=== PATIENT | female | born 1990 | race Caucasian/White ===

== ENCOUNTER 2016-09-20 13:25 | Emergency (ER) | payer OTHER ==
--- NOTE | 2016-09-20 16:08 | ED ORDER SUMMARY ---
..... Patient: KALI PETIT OrderSheet [facility] VisitID: [id number] [address] [place] [address] 26y, F Registration Date/Time: 09/20/2016 ORDER SHEET Weight: 64.4 kg (stated) Allergies: No Known Drug Allergy GENERAL ORDERS: Wet Prep (Cervix) (cervix) Urgent (14:09/20/2016 HBivens A.R.N.P.) (Ack 14:03 KHoerner) (14:09 SRoberts R.N.) CBC w Diff Urgent (14:09/20/2016 HBivens A.R.N.P.) (Ack 14:03 KHoerner) (14:15 KHoerner) CMP Urgent (14:09/20/2016 HBivens A.R.N.P.) (Ack 14:03 KHoerner) (14:15 KHoerner) UA-Culture if indicated Urgent (14:09/20/2016 HBivens A.R.N.P.) (Ack 14:03 KHoerner) (14:09 SRoberts R.N.) Serum Qualitative Urgent (14:09/20/2016 HBivens A.R.N.P.) (Ack 14:03 KHoerner) (14:09 SRoberts R.N.) (Cancelled: Duplicate [facility]14[facility] (Cancelled: Physician Order14:12 SRoberts R.N.) Pelvic Exam Setup (14:09/20/2016 HBivens A.R.N.P.) (Ack 14:03 KHoerner) (14:09 SRoberts R.N.) US OB 1st Trimester w Transvag (5 weeks) Urgent (14:08 09/20/2016 HBivens A.R.N.P.) (Ack 14:10 KHoerner) (16:27 SRoberts R.N.) Serum Quantitative Urgent (14:09/20/2016 HBivens A.R.N.P.) (Ack 14:10 KHoerner) (14:15 KHoerner) MEDICATION ORDERS: IV FLUIDS: ORDER SHEET NOTES: [Electronically signed by Su Douglass R.N. (16:31 09/20/2016)] [Electronically signed by Layne Rojo (16:37 09/20/2016)] [Electronically locked/signed by Su Douglass R.N. (16:31 09/20/2016)]
--- NOTE | 2016-09-20 16:08 | ED CLINICAL REPORT ---
Clinical Report - Physicians/Mid Levels [facility] [address] [place] [address] 09/20/2016 13:29 Patient: KALI PETIT Time Seen: 13:39; initial patient contact, initial documentation, patient care assumed. Arrived- By private vehicle. Historian- patient. HISTORY OF PRESENT ILLNESS Chief Complaint: PELVIC PAIN and VAGINAL BLEEDING. This started about 10 days ago, still present and now gone (bleeding gone, but still has pain). The symptoms are described as mild. Modifying factors. Not worsened by anything. Not relieved by anything. The patient has had mild, constant abdominal pain (runs vertical from umbilicus to suprapubic). The pain is described as located in the central area of the abdomen. She has had abnormal bleeding described as spotting saw bright red blood on tp a few times when wiping, none here. She has had a scant amount of white vaginal discharge . There is no prior history of pelvic inflammatory disease or exposure to venereal disease. The patient does not believe the discharge to be a yeast infection. No pelvic pain, vaginal pain, low back pain, flank pain or irregular periods. No vaginal itching, pain with urination, urinary frequency, urgency of urination or hematuria. Sexually active- unprotected sex and heterosexual. No exposure to sexually transmitted disease. Does not use control measures. Currently : about 5 weeks , dates based on last period. In 1st trimester. Recently diagnosed. Uncertain of dates. confirmed with home test. Has had no care. G 1. P 0. Not receiving care. Similar symptoms previously: None. Recent medical care: Not recently seen/assessed. REVIEW OF SYSTEMS The patient has had nausea. She has had vomiting. No diarrhea, fever, difficulty breathing or chest pain. All systems otherwise negative, except as recorded above. PAST HISTORY See nurses notes. ( PROBLEMS: Chronic Back Pain. Asthma. Polycystic Kidney. --17:58 Kelly Hernandez R.N. ADDITIONAL SURGERIES: no known surgeries.). Asthma. Polycystic kidney. SOCIAL HISTORY Never smoker. Occasional alcohol use. History of occasional drug use: marijuana. No recent travel. Is a local resident. FAMILY HISTORY Negative. ADDITIONAL NOTES The nursing notes have been reviewed with agreement regarding the chief complaint, HPI, ROS, PMH and patient medications and allergies. PHYSICAL EXAM Vital Signs: 09/20/2016 13:45 BP: 139/79. HR: 70. RR: 22. O2 saturation: 100%. Temp: 97.7 F. Pain level now: 0/10. Have been reviewed as normal and appear to be correct. Appearance: Alert. Oriented X3. No acute distress. HEENT: Normal external inspection. ENT: Pharynx normal. Neck: Neck supple. CVS: Heart sounds normal. Respiratory: No respiratory distress. Breath sounds normal. Chest nontender. Abdomen: Soft and nontender. Bowel sounds normal. No organomegaly. No mass. Back: Normal external inspection. : External inspection normal. Speculum exam abnormal. A scant amount of thick, white, yellow and malodorous vaginal discharge present. No vaginal bleeding. Cervical os closed. No tissue present. No cervicitis. No herpes-like lesions. Bimanual exam normal. Skin: Skin warm and dry. Normal skin color. No rash. Normal skin turgor. Extremities: Extremities nontender. No lower extremity edema. Neuro: Oriented X 3. Mood/affect normal. No motor deficit. No sensory deficit. LABS, X-RAYS, AND EKG Pelvic Sonogram: No acute disease. iup 6wk report given by Intergloss Juhi. Interpretation time: 15:29. Laboratory Tests: UA-Culture if indicated: (TRIPP: 09/20/2016 13:58) ( MsgRcvd 09/20/2016 14:44) Final results Test Result Flag Units (Reference) URINE COLOR YELLOW URINE APPEARANCE CLEAR URINE GLUCOSE NEGATIVE (NEGATIVE) URINE BILIRUBIN NEGATIVE (NEGATIVE) URINE KETONE NEGATIVE (NEGATIVE) URINE SPECIFIC GRAVITY 1.010 (1.010-1.030) URINE PH 7.0 (5.0-8.0) URINE PROTEIN NEGATIVE (NEGATIVE) URINE UROBILINOGEN 0.2 EU/dL (0.2-1.0) URINE NITRITE NEGATIVE (NEGATIVE) URINE BLOOD NEGATIVE (NEGATIVE) URINE LEUK ESTERASE NEGATIVE (NEGATIVE) URINE RBC RARE rbc/hpf (0-1) URINE WBC 0-1 wbc/hpf (0-1) URINE EPITHELIAL CELLS 0-1 EPI/hpf (0-5) URINE BACTERIA NONE SEEN (NONE SEEN) URINE COMMENT CULT NOT INDICATED URINE CULTURES ARE SET-UP BASED ON THE FOLLOWING CRITERIA:POSITIVE NITRITEPOSITIVE LEUKOCYTE ESTERASEGREATER THAN 10 WHITE BLOOD CELLSMODERATE (2+) OR GREATER BACTERIA CBC w Diff: (TRIPP: 09/20/2016 14:15) ( [facility] [place] 14[facility]39) Final results Test Result Flag Units (Reference) WHITE BLOOD COUNT 7.8 K/uL (4.5-11.5) RED BLOOD COUNT 5.06 M/uL (4.00-5.20) HEMOGLOBIN 14.6 gm/dL (12.0-16.0) HEMATOCRIT 43.8 % (36.0-46.0) MEAN CELL VOLUME 87 fL (80-100) MEAN CORPUSCULAR HGB 29 pg (26-34) MEAN CORPUSCULAR HGB CONC 33 g/dL (31-37) RED CELL DISTRIBUTION WIDTH 13.3 % (11.6-14.8) PLATELET COUNT 211 K/uL (150-400) NEUTROPHIL % 63.6 % (50-75) LYMPH % 27.7 % (25-40) MONO % 6.3 % (3-14) EOSINOPHIL % 2.0 % (0-4) BASOPHIL % 0.4 % (0-2) CMP: (TRIPP: 09/20/2016 14:15) ( MsgRcvd 09/20/2016 15:34) Final results Test Result Flag Units (Reference) GLUCOSE 91 mg/dL (70-110) BUN 7 mg/dL (7-18) CREATININE 0.6 mg/dL (0.6-1.3) Estimated GFR >60 mL/min Estimated GFR- >60 mL/min Note: Persistent reduction over 3 months in eGFR<60 mL/min/1.73 m2 defines CKD. Patients with eGFR values>=60 mL/min/1.73 m2 may also have CKD if evidence ofpersistent proteinuria. Additional information may be foundat www.kidney.org. SODIUM 140 mmol/L (136-145) POTASSIUM 3.5 mmol/L (3.5-5.1) CHLORIDE 104 mmol/L (98-107) CARBON DIOXIDE 24 mmol/L (21-32) CALCIUM 9.2 mg/dL (8.5-10.1) TOTAL PROTEIN 7.6 g/dL (6.4-8.2) ALBUMIN 4.2 g/dL (3.3-5.0) BILIRUBIN, TOTAL 0.5 mg/dL (0.0-1.0) ALKALINE PHOSPHATASE 47 U/L (46-116) AST (SGOT) 14 L U/L (15-37) ALT (SGPT) 17 U/L (12-78) BETA HCG, QUANTITATIVE 31403 mIU/mL REFERENCE RANGE:Adult Males: <2 mIU/mLNon- Females: <6 mIU/mL Females:Approximate Approximate hCGGestational Age Range (mIU/mL) 0-1 week 0-501-2 weeks 40-3002-3 weeks 100-96307-5 weeks 500-10980-8 months 5,000-200,0002-3 months 10,000-100,0002nd trimester 3,000-50,0003rd trimester 1,000-50,000 Wet Prep: (TRIPP: 09/20/2016 13:58) ( MsgRcvd 09/20/2016 14:38) Final results SPECIMEN DESCRIPTION: CERVIX Test Result Flag Units (Reference) WET MOUNT CLUE CELLS:: MODERATE * EPITHELIAL CELLS: MANY -- SOURCE?: CERVIX WHITE BLOOD CELLS: MODERATE TRICHOMONAS:: NONE -- YEAST:: NONE . PROGRESS AND PROCEDURES Patient counseled in person regarding the patient's stable condition, test results and diagnosis. 1600. Differential Diagnosis: I considered acute cholecystitis, pancreatitis, acute appendicitis, diverticulitis, colon cancer, urinary tract infection, ureterolithiasis, ovarian cyst, ovarian torsion, , ectopic , pelvic inflammatory disease, pelvic abscess, endometriosis and viral syndrome as a possible cause of pelvic pain in this patient. This is a partial list of diagnoses considered. Above considerations are based on history, physical exam, laboratory data and other information. Differential diagnosis was discussed with patient. Disposition: Discharged home in good and unchanged condition (16:08). Condition: good and stable. CLINICAL IMPRESSION Acute moderate bacterial vaginitis INSTRUCTIONS Warnings: GENERAL WARNINGS: Return or contact your physician immediately if your condition worsens or changes unexpectedly, if not improving as expected, or if other problems arise. Specifically return if problem worsens. Prescription Medications: Flagyl 500 mg: Take 1 tablet orally every 12 hours for 7 days. No refill. Substitution is permissible. Follow-up: Follow up with your doctor in about three days even if well. Call for an appointment. Summary of care provided to patient. Understanding of the discharge instructions verbalized by patient. (Electronically signed by Layne Rojo A.R.N.P. 09/20/2016 16:37)
--- NOTE | 2016-09-20 16:08 | ED NURSING NOTES ---
Clinical Report - Nurses [facility] [address] [place] [address] 09/20/2016 13:29 Patient: KALI PETIT TRIAGE Triage time 13:45. Acuity: LEVEL 3. Chief Complaint: ABDOMINAL CRAMPS and ABDOMINAL CRAMPS and SPOTTING. Alert. No acute distress. SEPSIS SCREEN: Sepsis Screen: negative. Negative (no infection suspected/documented). --13:54 Su Douglass R.N. 13:45 09/20/16. BP: 139/79. HR: 70. RR: 22. O2 saturation: 100%. Temp: 97.7 F. Pain level now: 0/10. --13:54 Su Douglass R.N. Weight: 64.4 kg stated. Height/Length: 63 inches Per Patient. BMI: 25.2. --13:48 Su Douglass R.N. Medications Qvar Inhalation. --13:47 Su Douglass R.N. Medication/allergy information source: the patient. --13:54 Su Douglass R.N. Allergies No Known Drug Allergy. --13:47 Su Douglass R.N. History Arrived by private vehicle. Historian: patient. Accompanied by friend. Primary physician ([facility]). Onset. (10 days ago, got worse today and had a "couple of drops of vaginal bleed this am "). She has had vomiting. Treatment IRONING WORKER: None. PAST MEDICAL HX: Immunizations: status is unknown. Last normal menstrual period- August 15. ( asthma, polycystic kidney). SURGERY HX: No history of previous surgery. SOCIAL HX: Never smoker. Occasional alcohol use. History of drug use: marijuana. Recently used drugs days ago. ABUSE ASSESSMENT: No report of abuse. FALL RISK ASSESSMENT: Fall risk assessment completed. No fall risk identified. NUTRITIONAL RISK ASSESSMENT: The nutritional risk assessment revealed no deficiencies. FUNCTIONAL ASSESSMENT: Functional assessment: no impairments noted. LEARNING NEEDS ASSESSMENT: The learning needs assessment revealed no barriers. SKIN INTEGRITY ASSESSMENT: Skin integrity risk assessment completed. No skin integrity risk identified. --13:54 Su Douglass R.N. Interventions ID band on patient. To room. --13:54 Su Douglass R.N. PHYSICAL ASSESSMENT Ambulatory to room. Patient gowned. GENERAL / NEURO / PSYCH: Alert. Oriented X 4. Appears anxious. HEENT: Mucous membranes are pink. RESPIRATORY: Respirations not labored. CVS: Capillary refill less than 2 seconds. GI / : Abdominal tenderness in the periumbilical area and suprapubic area. ( spot). SKIN: Skin is warm and dry. --14:02 Su Douglass R.N. NURSING PROGRESS NOTES Patient gowned. Head of bed elevated. Two patient identifiers checked. Call light placed in reach. Side rails up x 2. Bed placed in lowest position. Brakes of bed on. Patient ready for evaluation- chart flagged. --14:02 Su Douglass R.N. Patient ID band checked for patient name: patient confirmed. Instructions provided to collect clean catch urine and patient verbalized understanding. Clean catch urine collected with return of yellow-colored clear urine; sample sent to lab for urinalysis, culture and HCG. Specimen labeled in the presence of the patient. --14:03 Su Douglass R.N. PELVIC EXAM: Pelvic exam performed by MOBILITY SCOOTER REPAIRER. Assisted by one nurse. Preparation: pelvic tray and culture medium; patient placed in lithotomy position. Procedure: speculum exam. Scant amount of vaginal discharge noted. Specimens collected and sent to lab: wet prep. No vaginal bleeding noted. Status post-procedure: she was stable. Total time of assist / procedure: 15 minutes. --14:04 Su Douglass R.N. Patient ID band checked for patient name and birthdate: patient confirmed. Blood samples drawn from the left antecubital space with 22g butterfly by tech per protocol ; labeled in presence of the patient and sent to lab: rainbow set and red, green, purple and blue top. --14:20 Beverley Lucio ER Tech1. DISPOSITION / DISCHARGE 16:10. Condition at departure: improved. No learning barriers present. Discharge instructions provided and reviewed with the patient. Reviewed medication(s) side effects, precautions, dosing and course information. Prescription(s) given to the patient. Patient verbalized understanding. Written instructions provided in Kittitian. The patient was discharged home and accompanied by supervisor finish end. She left the Emergency Department ambulatory and via private vehicle. Loom Starter driving. Medication list reviewed and validated. --16:26 Su Douglass R.N. 16:24 09/20/16. BP: 115/64. HR: 63. RR: 18. O2 saturation: 100%. Temp: deferred. Pain level now: 0/10. 15:10 09/20/16. BP: 118/69. HR: 69. RR: 16. O2 saturation: 100% on room air. 13:45 09/20/16. BP: 139/79. HR: 70. RR: 22. O2 saturation: 100%. Temp: 97.7 F. Pain level now: 0/10. --16:26 Su Douglass R.N. Locked/Released at 09/20/2016 16:31 by Su Douglass R.N.
--- NOTE | 2016-09-20 16:08 | ED NURSING NOTES ---
Clinical Report - Nurses [facility] [address] [place] [address] 09/20/2016 13:29 Patient: KALI PETIT TRIAGE Triage time 13:45. Acuity: LEVEL 3. Chief Complaint: ABDOMINAL CRAMPS and ABDOMINAL CRAMPS and SPOTTING. Alert. No acute distress. SEPSIS SCREEN: Sepsis Screen: negative. Negative (no infection suspected/documented). --13:54 Su Douglass R.N. 13:45 09/20/16. BP: 139/79. HR: 70. RR: 22. O2 saturation: 100%. Temp: 97.7 F. Pain level now: 0/10. --13:54 Su Douglass R.N. Weight: 64.4 kg stated. Height/Length: 63 inches Per Patient. BMI: 25.2. --13:48 uS Douglass R.N. Medications Qvar Inhalation. --13:47 Su Douglass R.N. Medication/allergy information source: the patient. --13:54 Su Douglass R.N. Allergies No Known Drug Allergy. --13:47 Su Douglass R.N. History Arrived by private vehicle. Historian: patient. Accompanied by friend. Primary physician ([facility]). Onset. (10 days ago, got worse today and had a "couple of drops of vaginal bleed this am "). She has had vomiting. Treatment MARKETING INSTRUCTOR: None. PAST MEDICAL HX: Immunizations: status is unknown. Last normal menstrual period- August 15. ( asthma, polycystic kidney). SURGERY HX: No history of previous surgery. SOCIAL HX: Never smoker. Occasional alcohol use. History of drug use: marijuana. Recently used drugs days ago. ABUSE ASSESSMENT: No report of abuse. FALL RISK ASSESSMENT: Fall risk assessment completed. No fall risk identified. NUTRITIONAL RISK ASSESSMENT: The nutritional risk assessment revealed no deficiencies. FUNCTIONAL ASSESSMENT: Functional assessment: no impairments noted. LEARNING NEEDS ASSESSMENT: The learning needs assessment revealed no barriers. SKIN INTEGRITY ASSESSMENT: Skin integrity risk assessment completed. No skin integrity risk identified. --13:54 Su Douglass R.N. Interventions ID band on patient. To room. --13:54 Su Douglass R.N. PHYSICAL ASSESSMENT Ambulatory to room. Patient gowned. GENERAL / NEURO / PSYCH: Alert. Oriented X 4. Appears anxious. HEENT: Mucous membranes are pink. RESPIRATORY: Respirations not labored. CVS: Capillary refill less than 2 seconds. GI / : Abdominal tenderness in the periumbilical area and suprapubic area. ( spot). SKIN: Skin is warm and dry. --14:02 Su Douglass R.N. NURSING PROGRESS NOTES Patient gowned. Head of bed elevated. Two patient identifiers checked. Call light placed in reach. Side rails up x 2. Bed placed in lowest position. Brakes of bed on. Patient ready for evaluation- chart flagged. --14:02 Su Douglass R.N. Patient ID band checked for patient name: patient confirmed. Instructions provided to collect clean catch urine and patient verbalized understanding. Clean catch urine collected with return of yellow-colored clear urine; sample sent to lab for urinalysis, culture and HCG. Specimen labeled in the presence of the patient. --14:03 Su Douglass R.N. PELVIC EXAM: Pelvic exam performed by AQUATIC LIFE LABORER. Assisted by one nurse. Preparation: pelvic tray and culture medium; patient placed in lithotomy position. Procedure: speculum exam. Scant amount of vaginal discharge noted. Specimens collected and sent to lab: wet prep. No vaginal bleeding noted. Status post-procedure: she was stable. Total time of assist / procedure: 15 minutes. --14:04 Su Douglass R.N. Patient ID band checked for patient name and birthdate: patient confirmed. Blood samples drawn from the left antecubital space with 22g butterfly by tech per protocol ; labeled in presence of the patient and sent to lab: rainbow set and red, green, purple and blue top. --14:20 Beverley Lucio ER Tech1. DISPOSITION / DISCHARGE 16:10. Condition at departure: improved. No learning barriers present. Discharge instructions provided and reviewed with the patient. Reviewed medication(s) side effects, precautions, dosing and course information. Prescription(s) given to the patient. Patient verbalized understanding. Written instructions provided in Stateless. The patient was discharged home and accompanied by mold shop supervisor. She left the Emergency Department ambulatory and via private vehicle. Volcanologist driving. Medication list reviewed and validated. --16:26 Su Douglass R.N. 16:24 09/20/16. BP: 115/64. HR: 63. RR: 18. O2 saturation: 100%. Temp: deferred. Pain level now: 0/10. 15:10 09/20/16. BP: 118/69. HR: 69. RR: 16. O2 saturation: 100% on room air. 13:45 09/20/16. BP: 139/79. HR: 70. RR: 22. O2 saturation: 100%. Temp: 97.7 F. Pain level now: 0/10. --16:26 Su Douglass R.N. Locked/Released at 09/20/2016 16:31 by Su Douglass R.N.
--- NOTE | 2016-09-20 16:08 | ED ORDER SUMMARY ---
..... Patient: KALI PETIT OrderSheet [facility] VisitID: [id number] [address] [place] [address] 26y, F Registration Date/Time: 09/20/2016 ORDER SHEET Weight: 64.4 kg (stated) Allergies: No Known Drug Allergy GENERAL ORDERS: Wet Prep (Cervix) (cervix) Urgent (14:09/20/2016 HBivens A.R.N.P.) (Ack 14:03 KHoerner) (14:09 SRoberts R.N.) CBC w Diff Urgent (14:09/20/2016 HBivens A.R.N.P.) (Ack 14:03 KHoerner) (14:15 KHoerner) CMP Urgent (14:09/20/2016 HBivens A.R.N.P.) (Ack 14:03 KHoerner) (14:15 KHoerner) UA-Culture if indicated Urgent (14:09/20/2016 HBivens A.R.N.P.) (Ack 14:03 KHoerner) (14:09 SRoberts R.N.) Serum Qualitative Urgent (14:09/20/2016 HBivens A.R.N.P.) (Ack 14:03 KHoerner) (14:09 SRoberts R.N.) (Cancelled: Duplicate Order14:12 [facility] (Cancelled: Physician Order14:12 SRoberts R.N.) Pelvic Exam Setup (14:09/20/2016 HBivens A.R.N.P.) (Ack 14:03 KHoerner) (14:09 SRoberts R.N.) US OB 1st Trimester w Transvag (5 weeks) Urgent (14:08 09/20/2016 HBivens A.R.N.P.) (Ack 14:10 KHoerner) (16:27 SRoberts R.N.) Serum Quantitative Urgent (14:09/20/2016 HBivens A.R.N.P.) (Ack 14:10 KHoerner) (14:15 KHoerner) MEDICATION ORDERS: IV FLUIDS: ORDER SHEET NOTES: [Electronically signed by Su Douglass R.N. (16:31 09/20/2016)] [Electronically signed by Layne Rojo (16:37 09/20/2016)] [Electronically locked/signed by Su Douglass R.N. (16:31 09/20/2016)]
--- NOTE | 2016-09-20 16:08 | ED CLINICAL REPORT ---
Clinical Report - Physicians/Mid Levels [facility] [address] [place] [address] 09/20/2016 13:29 Patient: KALI PETIT Time Seen: 13:39; initial patient contact, initial documentation, patient care assumed. Arrived- By private vehicle. Historian- patient. HISTORY OF PRESENT ILLNESS Chief Complaint: PELVIC PAIN and VAGINAL BLEEDING. This started about 10 days ago, still present and now gone (bleeding gone, but still has pain). The symptoms are described as mild. Modifying factors. Not worsened by anything. Not relieved by anything. The patient has had mild, constant abdominal pain (runs vertical from umbilicus to suprapubic). The pain is described as located in the central area of the abdomen. She has had abnormal bleeding described as spotting saw bright red blood on tp a few times when wiping, none here. She has had a scant amount of white vaginal discharge . There is no prior history of pelvic inflammatory disease or exposure to venereal disease. The patient does not believe the discharge to be a yeast infection. No pelvic pain, vaginal pain, low back pain, flank pain or irregular periods. No vaginal itching, pain with urination, urinary frequency, urgency of urination or hematuria. Sexually active- unprotected sex and heterosexual. No exposure to sexually transmitted disease. Does not use control measures. Currently : about 5 weeks , dates based on last period. In 1st trimester. Recently diagnosed. Uncertain of dates. confirmed with home test. Has had no care. G 1. P 0. Not receiving care. Similar symptoms previously: None. Recent medical care: Not recently seen/assessed. REVIEW OF SYSTEMS The patient has had nausea. She has had vomiting. No diarrhea, fever, difficulty breathing or chest pain. All systems otherwise negative, except as recorded above. PAST HISTORY See nurses notes. ( PROBLEMS: Chronic Back Pain. Asthma. Polycystic Kidney. --17:58 Kelly Hernandez R.N. ADDITIONAL SURGERIES: no known surgeries.). Asthma. Polycystic kidney. SOCIAL HISTORY Never smoker. Occasional alcohol use. History of occasional drug use: marijuana. No recent travel. Is a local resident. FAMILY HISTORY Negative. ADDITIONAL NOTES The nursing notes have been reviewed with agreement regarding the chief complaint, HPI, ROS, PMH and patient medications and allergies. PHYSICAL EXAM Vital Signs: 09/20/2016 13:45 BP: 139/79. HR: 70. RR: 22. O2 saturation: 100%. Temp: 97.7 F. Pain level now: 0/10. Have been reviewed as normal and appear to be correct. Appearance: Alert. Oriented X3. No acute distress. HEENT: Normal external inspection. ENT: Pharynx normal. Neck: Neck supple. CVS: Heart sounds normal. Respiratory: No respiratory distress. Breath sounds normal. Chest nontender. Abdomen: Soft and nontender. Bowel sounds normal. No organomegaly. No mass. Back: Normal external inspection. : External inspection normal. Speculum exam abnormal. A scant amount of thick, white, yellow and malodorous vaginal discharge present. No vaginal bleeding. Cervical os closed. No tissue present. No cervicitis. No herpes-like lesions. Bimanual exam normal. Skin: Skin warm and dry. Normal skin color. No rash. Normal skin turgor. Extremities: Extremities nontender. No lower extremity edema. Neuro: Oriented X 3. Mood/affect normal. No motor deficit. No sensory deficit. LABS, X-RAYS, AND EKG Pelvic Sonogram: No acute disease. iup 6wk report given by [employer]. Interpretation time: 15:29. Laboratory Tests: UA-Culture if indicated: (TRIPP: 09/20/2016 13:58) ( MsgRcvd 09/20/2016 14:44) Final results Test Result Flag Units (Reference) URINE COLOR YELLOW URINE APPEARANCE CLEAR URINE GLUCOSE NEGATIVE (NEGATIVE) URINE BILIRUBIN NEGATIVE (NEGATIVE) URINE KETONE NEGATIVE (NEGATIVE) URINE SPECIFIC GRAVITY 1.010 (1.010-1.030) URINE PH 7.0 (5.0-8.0) URINE PROTEIN NEGATIVE (NEGATIVE) URINE UROBILINOGEN 0.2 EU/dL (0.2-1.0) URINE NITRITE NEGATIVE (NEGATIVE) URINE BLOOD NEGATIVE (NEGATIVE) URINE LEUK ESTERASE NEGATIVE (NEGATIVE) URINE RBC RARE rbc/hpf (0-1) URINE WBC 0-1 wbc/hpf (0-1) URINE EPITHELIAL CELLS 0-1 EPI/hpf (0-5) URINE BACTERIA NONE SEEN (NONE SEEN) URINE COMMENT CULT NOT INDICATED URINE CULTURES ARE SET-UP BASED ON THE FOLLOWING CRITERIA:POSITIVE NITRITEPOSITIVE LEUKOCYTE ESTERASEGREATER THAN 10 WHITE BLOOD CELLSMODERATE (2+) OR GREATER BACTERIA CBC w Diff: (TRIPP: 09/20/2016 14:15) ( [facility] 09/20/2016 14:39) Final results Test Result Flag Units (Reference) WHITE BLOOD COUNT 7.8 K/uL (4.5-11.5) RED BLOOD COUNT 5.06 M/uL (4.00-5.20) HEMOGLOBIN 14.6 gm/dL (12.0-16.0) HEMATOCRIT 43.8 % (36.0-46.0) MEAN CELL VOLUME 87 fL (80-100) MEAN CORPUSCULAR HGB 29 pg (26-34) MEAN CORPUSCULAR HGB CONC 33 g/dL (31-37) RED CELL DISTRIBUTION WIDTH 13.3 % (11.6-14.8) PLATELET COUNT 211 K/uL (150-400) NEUTROPHIL % 63.6 % (50-75) LYMPH % 27.7 % (25-40) MONO % 6.3 % (3-14) EOSINOPHIL % 2.0 % (0-4) BASOPHIL % 0.4 % (0-2) CMP: (TRIPP: 09/20/2016 14:15) ( MsgRcvd 09/20/2016 15:34) Final results Test Result Flag Units (Reference) GLUCOSE 91 mg/dL (70-110) BUN 7 mg/dL (7-18) CREATININE 0.6 mg/dL (0.6-1.3) Estimated GFR >60 mL/min Estimated GFR- >60 mL/min Note: Persistent reduction over 3 months in eGFR<60 mL/min/1.73 m2 defines CKD. Patients with eGFR values>=60 mL/min/1.73 m2 may also have CKD if evidence ofpersistent proteinuria. Additional information may be foundat www.[email or web address].org. SODIUM 140 mmol/L (136-145) POTASSIUM 3.5 mmol/L (3.5-5.1) CHLORIDE 104 mmol/L (98-107) CARBON DIOXIDE 24 mmol/L (21-32) CALCIUM 9.2 mg/dL (8.5-10.1) TOTAL PROTEIN 7.6 g/dL (6.4-8.2) ALBUMIN 4.2 g/dL (3.3-5.0) BILIRUBIN, TOTAL 0.5 mg/dL (0.0-1.0) ALKALINE PHOSPHATASE 47 U/L (46-116) AST (SGOT) 14 L U/L (15-37) ALT (SGPT) 17 U/L (12-78) BETA HCG, QUANTITATIVE 70602 mIU/mL REFERENCE RANGE:Adult Males: <2 mIU/mLNon- Females: <6 mIU/mL Females:Approximate Approximate hCGGestational Age Range (mIU/mL) 0-1 week 0-501-2 weeks 40-3002-3 weeks 100-02009-8 weeks 500-26841-0 months 5,000-200,0002-3 months 10,000-100,0002nd trimester 3,000-50,0003rd trimester 1,000-50,000 Wet Prep: (TRIPP: 09/20/2016 13:58) ( MsgRcvd 09/20/2016 14:38) Final results SPECIMEN DESCRIPTION: CERVIX Test Result Flag Units (Reference) WET MOUNT CLUE CELLS:: MODERATE * EPITHELIAL CELLS: MANY -- SOURCE?: CERVIX WHITE BLOOD CELLS: MODERATE TRICHOMONAS:: NONE -- YEAST:: NONE . PROGRESS AND PROCEDURES Patient counseled in person regarding the patient's stable condition, test results and diagnosis. 1600. Differential Diagnosis: I considered acute cholecystitis, pancreatitis, acute appendicitis, diverticulitis, colon cancer, urinary tract infection, ureterolithiasis, ovarian cyst, ovarian torsion, , ectopic , pelvic inflammatory disease, pelvic abscess, endometriosis and viral syndrome as a possible cause of pelvic pain in this patient. This is a partial list of diagnoses considered. Above considerations are based on history, physical exam, laboratory data and other information. Differential diagnosis was discussed with patient. Disposition: Discharged home in good and unchanged condition (16:08). Condition: good and stable. CLINICAL IMPRESSION Acute moderate bacterial vaginitis INSTRUCTIONS Warnings: GENERAL WARNINGS: Return or contact your physician immediately if your condition worsens or changes unexpectedly, if not improving as expected, or if other problems arise. Specifically return if problem worsens. Prescription Medications: Flagyl 500 mg: Take 1 tablet orally every 12 hours for 7 days. No refill. Substitution is permissible. Follow-up: Follow up with your doctor in about three days even if well. Call for an appointment. Summary of care provided to patient. Understanding of the discharge instructions verbalized by patient. (Electronically signed by Layne Rojo A.R.N.P. 09/20/2016 16:37)
--- NOTE | 2016-09-20 16:37 | ED MED RECONCILIATION SUMMARY ---
Patient: KALI PETIT Medication Reconciliation Report [facility] VisitID: [id number] [address] [place] [address] 26y, F Registration Date/Time: 09/20/2016 Weight: 64.4 kg Height/Length: 63 in. BMI: 25.2 ALLERGIES: No Known Drug Allergy The patient's Home Medications are listed below: THE FOLLOWING MEDICATIONS NEED TO BE RECONCILED: Qvar Inhalation The source(s) of the original Home Medication information: patient The following Medications were given to the patient in the Emergency Department: None. The following Medications were prescribed to the patient: Flagyl 500 mg: Take 1 tablet orally every 12 hours for 7 days. No refill. Substitution is permissible. -- Layne Rojo A.R.N.P.
--- NOTE | 2016-09-20 16:37 | ED DISCHARGE INSTRUCTIONS ---
Patient: KALI PETIT General Instructions [facility] VisitID: [id number] [address] [place] [address] 26y, F Registration Date/Time: 09/20/2016 Acute moderate bacterial vaginitis INSTRUCTIONS Warnings: GENERAL WARNINGS: Return or contact your physician immediately if your condition worsens or changes unexpectedly, if not improving as expected, or if other problems arise. Specifically return if problem worsens. Prescription Medications: Flagyl 500 mg: Take 1 tablet orally every 12 hours for 7 days. No refill. Substitution is permissible. Follow-up: Follow up with your doctor in about three days even if well. Call for an appointment. Summary of care provided to patient. Understanding of the discharge instructions verbalized by patient. ADDITIONAL INFORMATION Bacterial Vaginosis You have a bacterial infection of the vagina called bacterial vaginosis (BV). It may also be called gardnerella or non-specific vaginitis. BV occurs when the "bad" bacteria outnumber the "good" bacteria that are normally present in the vagina. Symptoms include foul-smelling vaginal discharge (most noticeable after vaginal intercourse). There may also be burning with urination. The burning is caused as the urine passes over the inflamed outer vaginal area. The cause of bacterial vaginosis is not certain. However, your risk is higher if you recently began a new sexual relationship, or have had many sex partners in the past. Your risk is also higher if you douche often. While bacterial vaginosis most often occurs only in sexually active women, this is not a true sexually transmitted disease. You did not get this from your partner. You cannot give it to your partner. The infection may be related to temporary changes in the pH of vaginal fluids after being exposed to semen. Home Care: Keep the genital area clean and free of discharge. Do this by wearing an absorbent sanitary pad and changing it often. Shower daily. When you shower, clean the outer vaginal area with plain soap and water. Do not douche during treatment unless advised to do so by your doctor. Routine douching after treatment is no longer recommended to clean the vagina. It raises your risk of vaginal infection and pelvic inflammatory disease. Avoid having sex until you have finished all antibiotic medicine and all symptoms have gone away. Wear cotton underwear or cotton-lined panty hose. Dont wear pants that are too tight. Limiting the number of sex partners you have lowers your risk of this and other vaginal infections, STDs, and HIV. Take all medicine as directed until it is gone, even if you are feeling better. If you dont do this, symptoms might return. Follow Up with your doctor if symptoms dont go away after the medicine is finished. Get Prompt Medical Attention if any of the following occur: Fever of 100.4F (38C) or higher, or as directed by your healthcare provider Lower abdominal pain Rash or joint pain Painful sores around the outer vaginal area or on your partners penis Metronidazole Oral tablet What is this medicine? METRONIDAZOLE (me troe NI da zole) is an antiinfective. It is used to treat certain kinds of bacterial and protozoal infections. It will not work for colds, flu, or other viral infections. How should I use this medicine? Take this medicine by mouth with a full glass of water. Follow the directions on the prescription label. Take your medicine at regular intervals. Do not take your medicine more often than directed. Take all of your medicine as directed even if you think you are better. Do not skip doses or stop your medicine early. Talk to your special procedures tech regarding the use of this medicine in children. Special care may be needed. What side effects may I notice from receiving this medicine? Side effects that you should report to your doctor or health sub acute care nurse as soon as possible: allergic reactions like skin rash or hives, swelling of the face, lips, or tongue confusion, clumsiness difficulty speaking discolored or sore mouth dizziness fever, infection numbness, tingling, pain or weakness in the hands or feet trouble passing urine or change in the amount of urine redness, blistering, peeling or loosening of the skin, including inside the mouth seizures unusually weak or tired vaginal irritation, dryness, or discharge Side effects that usually do not require medical attention (report to your doctor or health sub acute care nurse if they continue or are bothersome): diarrhea headache irritability metallic taste nausea stomach pain or cramps trouble sleeping What may interact with this medicine? Do not take this medicine with any of the following medications: alcohol or any product that contains alcohol amprenavir oral solution cisapride disulfiram dofetilide dronedarone paclitaxel injection pimozide ritonavir oral solution sertraline oral solution sulfamethoxazole-trimethoprim injection thioridazine ziprasidone This medicine may also interact with the following medications: cimetidine lithium other medicines that prolong the QT interval (cause an abnormal heart rhythm) phenobarbital phenytoin warfarin What if I miss a dose? If you miss a dose, take it as soon as you can. If it is almost time for your next dose, take only that dose. Do not take double or extra doses. Where should I keep my medicine? Keep out of the reach of children. Store at room temperature below 25 degrees C (77 degrees F). Protect from light. Keep container tightly closed. Throw away any unused medicine after the expiration date. What should I tell my health care provider before I take this medicine? They need to know if you have any of these conditions: anemia or other blood disorders disease of the nervous system fungal or yeast infection if you drink alcohol containing drinks liver disease seizures an unusual or allergic reaction to metronidazole, or other medicines, foods, dyes, or preservatives or trying to get breast-feeding What should I watch for while using this medicine? Tell your doctor or health sub acute care nurse if your symptoms do not improve or if they get worse. You may get drowsy or dizzy. Do not drive, use machinery, or do anything that needs mental alertness until you know how this medicine affects you. Do not stand or sit up quickly, especially if you are an older patient. This reduces the risk of dizzy or fainting spells. Avoid alcoholic drinks while you are taking this medicine and for three days afterward. Alcohol may make you feel dizzy, sick, or flushed. If you are being treated for a sexually transmitted disease, avoid sexual contact until you have finished your treatment. Your sexual partner may also need treatment. You have been given the following additional information: Vaginitis, Bacterial Metronidazole Oral tablet (Electronically signed by Layne Rojo A.R.N.P. 09/20/2016 16:37)
--- NOTE | 2016-09-20 16:37 | ED MAR SUMMARY ---
..... Medication Administration Record [facility] [address], [place] [id number] Patient: KALI PETIT Visit ID: [id number] 26y, F Weight: 64.4 kg Height/Length: 63 in BMI: 25.2 ALLERGIES: No Known Drug Allergy
--- NOTE | 2016-09-20 16:37 | ED MAR SUMMARY ---
..... Medication Administration Record [facility] [address], [place] [id number] Patient: KALI PETIT Visit ID: [id number] 26y, F Weight: 64.4 kg Height/Length: 63 in BMI: 25.2 ALLERGIES: No Known Drug Allergy
--- NOTE | 2016-09-20 16:37 | ED MED RECONCILIATION SUMMARY ---
Patient: KALI PETIT Medication Reconciliation Report [facility] VisitID: [id number] [address] [place] [address] 26y, F Registration Date/Time: 09/20/2016 Weight: 64.4 kg Height/Length: 63 in. BMI: 25.2 ALLERGIES: No Known Drug Allergy The patient's Home Medications are listed below: THE FOLLOWING MEDICATIONS NEED TO BE RECONCILED: Qvar Inhalation The source(s) of the original Home Medication information: patient The following Medications were given to the patient in the Emergency Department: None. The following Medications were prescribed to the patient: Flagyl 500 mg: Take 1 tablet orally every 12 hours for 7 days. No refill. Substitution is permissible. -- Layne Rojo A.R.N.P.
--- NOTE | 2016-09-20 16:37 | ED DISCHARGE INSTRUCTIONS ---
Patient: KALI PETIT General Instructions [facility] VisitID: [id number] [address] [place] [address] 26y, F Registration Date/Time: 09/20/2016 Acute moderate bacterial vaginitis INSTRUCTIONS Warnings: GENERAL WARNINGS: Return or contact your physician immediately if your condition worsens or changes unexpectedly, if not improving as expected, or if other problems arise. Specifically return if problem worsens. Prescription Medications: Flagyl 500 mg: Take 1 tablet orally every 12 hours for 7 days. No refill. Substitution is permissible. Follow-up: Follow up with your doctor in about three days even if well. Call for an appointment. Summary of care provided to patient. Understanding of the discharge instructions verbalized by patient. ADDITIONAL INFORMATION Bacterial Vaginosis You have a bacterial infection of the vagina called bacterial vaginosis (BV). It may also be called gardnerella or non-specific vaginitis. BV occurs when the "bad" bacteria outnumber the "good" bacteria that are normally present in the vagina. Symptoms include foul-smelling vaginal discharge (most noticeable after vaginal intercourse). There may also be burning with urination. The burning is caused as the urine passes over the inflamed outer vaginal area. The cause of bacterial vaginosis is not certain. However, your risk is higher if you recently began a new sexual relationship, or have had many sex partners in the past. Your risk is also higher if you douche often. While bacterial vaginosis most often occurs only in sexually active women, this is not a true sexually transmitted disease. You did not get this from your partner. You cannot give it to your partner. The infection may be related to temporary changes in the pH of vaginal fluids after being exposed to semen. Home Care: Keep the genital area clean and free of discharge. Do this by wearing an absorbent sanitary pad and changing it often. Shower daily. When you shower, clean the outer vaginal area with plain soap and water. Do not douche during treatment unless advised to do so by your doctor. Routine douching after treatment is no longer recommended to clean the vagina. It raises your risk of vaginal infection and pelvic inflammatory disease. Avoid having sex until you have finished all antibiotic medicine and all symptoms have gone away. Wear cotton underwear or cotton-lined panty hose. Dont wear pants that are too tight. Limiting the number of sex partners you have lowers your risk of this and other vaginal infections, STDs, and HIV. Take all medicine as directed until it is gone, even if you are feeling better. If you dont do this, symptoms might return. Follow Up with your doctor if symptoms dont go away after the medicine is finished. Get Prompt Medical Attention if any of the following occur: Fever of 100.4F (38C) or higher, or as directed by your healthcare provider Lower abdominal pain Rash or joint pain Painful sores around the outer vaginal area or on your partners penis Metronidazole Oral tablet What is this medicine? METRONIDAZOLE (me troe NI da zole) is an antiinfective. It is used to treat certain kinds of bacterial and protozoal infections. It will not work for colds, flu, or other viral infections. How should I use this medicine? Take this medicine by mouth with a full glass of water. Follow the directions on the prescription label. Take your medicine at regular intervals. Do not take your medicine more often than directed. Take all of your medicine as directed even if you think you are better. Do not skip doses or stop your medicine early. Talk to your grinder set up operator universal regarding the use of this medicine in children. Special care may be needed. What side effects may I notice from receiving this medicine? Side effects that you should report to your doctor or health rn patient care as soon as possible: allergic reactions like skin rash or hives, swelling of the face, lips, or tongue confusion, clumsiness difficulty speaking discolored or sore mouth dizziness fever, infection numbness, tingling, pain or weakness in the hands or feet trouble passing urine or change in the amount of urine redness, blistering, peeling or loosening of the skin, including inside the mouth seizures unusually weak or tired vaginal irritation, dryness, or discharge Side effects that usually do not require medical attention (report to your doctor or health rn patient care if they continue or are bothersome): diarrhea headache irritability metallic taste nausea stomach pain or cramps trouble sleeping What may interact with this medicine? Do not take this medicine with any of the following medications: alcohol or any product that contains alcohol amprenavir oral solution cisapride disulfiram dofetilide dronedarone paclitaxel injection pimozide ritonavir oral solution sertraline oral solution sulfamethoxazole-trimethoprim injection thioridazine ziprasidone This medicine may also interact with the following medications: cimetidine lithium other medicines that prolong the QT interval (cause an abnormal heart rhythm) phenobarbital phenytoin warfarin What if I miss a dose? If you miss a dose, take it as soon as you can. If it is almost time for your next dose, take only that dose. Do not take double or extra doses. Where should I keep my medicine? Keep out of the reach of children. Store at room temperature below 25 degrees C (77 degrees F). Protect from light. Keep container tightly closed. Throw away any unused medicine after the expiration date. What should I tell my health care provider before I take this medicine? They need to know if you have any of these conditions: anemia or other blood disorders disease of the nervous system fungal or yeast infection if you drink alcohol containing drinks liver disease seizures an unusual or allergic reaction to metronidazole, or other medicines, foods, dyes, or preservatives or trying to get breast-feeding What should I watch for while using this medicine? Tell your doctor or health rn patient care if your symptoms do not improve or if they get worse. You may get drowsy or dizzy. Do not drive, use machinery, or do anything that needs mental alertness until you know how this medicine affects you. Do not stand or sit up quickly, especially if you are an older patient. This reduces the risk of dizzy or fainting spells. Avoid alcoholic drinks while you are taking this medicine and for three days afterward. Alcohol may make you feel dizzy, sick, or flushed. If you are being treated for a sexually transmitted disease, avoid sexual contact until you have finished your treatment. Your sexual partner may also need treatment. You have been given the following additional information: Vaginitis, Bacterial Metronidazole Oral tablet (Electronically signed by Layne Rojo A.R.N.P. 09/20/2016 16:37)
--- NOTE | 2016-09-20 16:48 | DIAGNOSTIC IMAGING REPORT ---
PROCEDURE: US OB 1ST TRIMESTER W/TRANSVAG INDICATION: POSSIBLE ECTOPIC TECHNIQUE: Garcia scale, color, and spectral Doppler transabdominal and endovaginal sonographic images of the first trimester gravid uterus were obtained. COMPARISON: None. FINDINGS: TRANSABDOMINAL SCANS: Single intrauterine gestational sac. Bilateral renal cysts, largest 2.8 cm. TRANSVAGINAL SCANS: Retroverted uterus. Yolk sac present. No pole identified. Gestational sac diameter of 10.4 mm, 6 weeks with IRMA 05/16/2017. 1.9 cm left ovarian corpus luteum cyst with central cystic area. IMPRESSION: 1. Single intrauterine gestational sac without evidence of a pole. Recommend follow-up Beta hCG and ultrasound. 2. Results discussed with BOO Daniels
== END 2016-09-20 16:10 | disposition home or self-care (01) ==
LOC: ED SRH 13:25
DX: O23.591 Infection of other part of genital tract in pregnancy, first trimester (principal); B96.89 Other specified bacterial agents as the cause of diseases classified elsewhere; Z3A.01 Less than 8 weeks gestation of pregnancy
CPT/HCPCS: 90004; 90100; 90195; 90197; 95059